=== PATIENT | male | born 1965 | race Caucasian/White ===

== ENCOUNTER → 2017-06-07 | Outpatient (CLI) | payer OTHER ==
[~2017-06-07] MED LIST: FLAX100053 PO; GLUC-135 PO; IBUP-56 PO; MELO-207 PO; MODA100T5 PO; TAMS0.4C25 PO
--- NOTE | 2017-06-07 09:40 | RADIOLOGY IMAGING REPORT ---
FACILITY: [facility] PATIENT NAME: Karthik Mcdermott : 1965 MR: [id number] V: [id number] EXAM DATE: ORDERING PHYSICIAN: MAURIZIO WILLIAM TECHNOLOGIST: Location: [facility] - [place] Patient: Karthik Mcdermott : 1965 Visit/Account:[id number] Date of Sevice: 06/07/2017 Technique: CERVICAL SPINE 2 OR 3 VIEW HISTORY: Cervical neck pain Comparison studies: None FINDINGS: There is no acute fracture. The vertebral body heights, alignment and intervertebral disc spaces are maintained. Soft tissues are unremarkable. IMPRESSION: 1. No acute osseous process. Report Dictated By: Otis Blair DO at 06/07/2017 9:23 AM Report E-Signed By: Otis Blair DO at 06/07/2017 9:24 AM WSN:[id number]
--- NOTE | 2017-06-07 09:42 | RADIOLOGY IMAGING REPORT ---
FACILITY: [facility] PATIENT NAME: Karthik Mcdermott : 1965 MR: [id number] V: [id number] EXAM DATE: ORDERING PHYSICIAN: MAURIZIO WILLIAM TECHNOLOGIST: Location: [facility] Patient: Karthik Mcdermott : 1965 Visit/Account:[id number] Date of Sevice: 06/07/2017 CLAVICLE RIGHT HISTORY: Fell Two-view examination right clavicle FINDINGS: Clavicles intact no fracture. The glenohumeral and AC joints are well-maintained. Adjacent ribs are n ormal. Right upper chest is clear. IMPRESSION: 1. Negative right clavicle Report Dictated By: rBayan Monge MD at 06/07/2017 9:21 AM Report E-Signed By: Brayan Monge MD at 06/07/2017 9:22 AM [id number]
== END ==
LOC: RAD 08:42
PROVIDERS: ATTEND Internal Medicine
DX: M54.2 Cervicalgia (principal); M89.8X1 Other specified disorders of bone, shoulder
CPT/HCPCS: 72040

== ENCOUNTER 2017-06-18 04:26 | Emergency (ER) | payer OTHER ==
[~2017-06-18] VITALS: Ht 188 cm; Wt 81.6 kg
[2017-06-18] MEDS ORDERED: NS(*) 0.9% 1000 ML BAG 1,000 ML IV ONE (04:44)
--- NOTE | 2017-06-18 04:44 | ER Report ---
History and Physical Time Seen By MD: 04:35 Hx. of Stated Complaint: patient having abdominal pain and vomiting since 0200. pain is mid belly and feels like cramping. HPI/ROS CHIEF COMPLAINT: Abdominal pain HISTORY OF PRESENT ILLNESS: 51-year-old male presents ambulatory to the ER complaining severe epigastric pain in a bandlike distribution across his upper abdomen. Patient's been having multiple episodes of vomiting. Describes severe 10 out of 10 crampy pain. He is pale and notes some sweats. Patient ate leftover [employer] food and had alcohol last evening for dinner. He is status post appendectomy. Patient denies diarrhea or constipation. Patient denies dysuria, frequency or hematuria. Patient denies fever or chills. REVIEW OF SYSTEMS: Respiratory: No cough, no dyspnea. Cardiovascular: No chest pain, no palpitations. Gastrointestinal: As above Musculoskeletal: No back pain. Allergies: Coded Allergies: gluten (Unverified Allergy, Unknown, 06/18/17) levofloxacin (Unverified Allergy, Unknown, 06/18/17) Home Meds Active Scripts Ondansetron (ZOFRAN ODT) 4 Mg Tab.rapdis, 4 MG PO every 6 hours Y for NAUSEA/ VOMITING, #12 TAB TAKE 1 TABLET BY MOUTH EVERY 12 HOURS Prov:KIP WOLF DO 06/18/17 Oxycodone Hcl/Acetaminophen (PERCOCET 5-325 MG TABLET) 1 Each Tablet, 1 EACH PO Q4-6H Y for PAIN, #12 Prov:KIP WOLF DO 06/18/17 Discontinued Reported Medications Ibuprofen (IBUPROFEN) 200 Mg Tablet, 2 TAB PO TID Y for pain, TAB 06/07/17 Gluc Waterman/Chondro Waterman A/Vit C/Mn (GLUCOSAMINE CHONDROITIN TAB) 1 Each Tablet, 1 EACH PO QDAY 06/08/16 Flaxseed Oil (FLAXSEED) 1,000 Mg Capsule, 1 CAP PO QDAY, CAPSULE 06/08/16 Reviewed Nurses Notes: Yes Old Medical Records Reviewed: Yes Hx Smoking: No Smoking Status: Never Smoker Hx Substance Use Disorder: No Hx Alcohol Use: Yes Constitutional Vital Sign - Last 24 Hours 06/18/17 06/18/17 06/18/17 06/18/17 04:30 04:41 04:57 05:00 Temp 98.1 Pulse 64 66 Resp 24 B/P (MAP) 113/58 (76) 111/70 (84) Pulse Ox 97 98 O2 Delivery Room Air 06/18/17 06/18/17 06/18/17 05:26 05:30 05:35 Pulse 57 60 B/P (MAP) 122/71 (88) Pulse Ox 98 97 Physical Exam Vital signs stable, afebrile, pulse ox normal General Appearance: The patient is alert, has no immediate need for airway protection and no current signs of toxicity. Moderate distress, slightly pale appearing, skin warm and dry HEENT: Pupils equal and round no injection. Oropharynx without redness or exudate, mucous. Membranes are moist Respiratory: Chest is non tender, lungs are clear to auscultation. Cardiac: regular rate and rhythm Gastrointestinal: Abdomen is soft, moderate tenderness across the upper abdomen. There is some guarding but no rebound, no masses, bowel sounds normal. Musculoskeletal: Neck: Neck is supple and non tender. No lymphadenopathy Extremities have full range of motion and are non tender. Skin: No rashes or lesions. DIFFERENTIAL DIAGNOSIS: After history and physical exam differential diagnosis was considered for abdominal pain including but not limited to appendicitis, cholecystitis, food poisoning, gastroenteritis, viral syndrome gastritis and urinary tract infection. Medical Decision Making Data Points Result Diagram: 06/18/17 0439 06/18/17 0439 Laboratory Hematology Test 06/18/17 04:39 Red Blood Count 6.04 M/uL (4.00-5.60) Mean Corpuscular Volume 87.3 fL (80.0-96.0) Mean Corpuscular Hemoglobin 29.3 pg (26.0-33.0) Mean Corpuscular Hemoglobin Concent 33.6 g/dL (32.0-36.0) Red Cell Distribution Width 15.0 % (11.5-14.5) Mean Platelet Volume 8.3 fL (7.2-11.1) Neutrophils (%) (Auto) 82.5 % (39.4-72.5) Lymphocytes (%) (Auto) 11.4 % (17.6-49.6) Monocytes (%) (Auto) 5.3 % (4.1-12.4) Eosinophils (%) (Auto) 0.3 % (0.4-6.7) Basophils (%) (Auto) 0.5 % (0.3-1.4) Nucleated RBC Relative Count (auto) 0.2 /100WBC Neutrophils # (Auto) 10.5 K/uL (2.0-7.4) Lymphocytes # (Auto) 1.5 K/uL (1.3-3.6) Monocytes # (Auto) 0.7 K/uL (0.3-1.0) Eosinophils # (Auto) 0.0 K/uL (0.0-0.5) Basophils # (Auto) 0.1 K/uL (0.0-0.1) Nucleated RBC Absolute Count (auto) 0.02 K/uL Sodium Level 138 mmol/L (137-145) Potassium Level 3.9 mmol/L (3.5-5.0) Chloride Level 98 mmol/L (98-107) Carbon Dioxide Level 28 mmol/L (22-30) Blood Urea Nitrogen 24 mg/dl (9-21) Creatinine 1.30 mg/dl (0.66-1.25) Glomerular Filtration Rate Calc 58.0 Random Glucose 120 mg/dl (75-110) Calcium Level 9.1 mg/dl (8.4-10.2) Total Bilirubin 0.6 mg/dl (0.2-1.3) Aspartate Amino Transf (AST/SGOT) 27 U/L (0-35) Alanine Aminotransferase (ALT/SGPT) 35 U/L (0-56) Alkaline Phosphatase 69 U/L (0-126) Total Protein 8.1 gm/dl (6.3-8.2) Albumin 4.6 g/dl (3.5-5.0) Amylase Level 104 U/L (0-110) Lipase 100 U/L (23-300) Chemistry Test 06/18/17 04:39 White Blood Count 12.7 k/uL (4.5-11.0) Red Blood Count 6.04 M/uL (4.00-5.60) Hemoglobin 17.7 g/dL (14.0-18.0) Hematocrit 52.7 % (42.0-52.0) Mean Corpuscular Volume 87.3 fL (80.0-96.0) Mean Corpuscular Hemoglobin 29.3 pg (26.0-33.0) Mean Corpuscular Hemoglobin Concent 33.6 g/dL (32.0-36.0) Red Cell Distribution Width 15.0 % (11.5-14.5) Platelet Count 271 K/uL (150-450) Mean Platelet Volume 8.3 fL (7.2-11.1) Neutrophils (%) (Auto) 82.5 % (39.4-72.5) Lymphocytes (%) (Auto) 11.4 % (17.6-49.6) Monocytes (%) (Auto) 5.3 % (4.1-12.4) Eosinophils (%) (Auto) 0.3 % (0.4-6.7) Basophils (%) (Auto) 0.5 % (0.3-1.4) Nucleated RBC Relative Count (auto) 0.2 /100WBC Neutrophils # (Auto) 10.5 K/uL (2.0-7.4) Lymphocytes # (Auto) 1.5 K/uL (1.3-3.6) Monocytes # (Auto) 0.7 K/uL (0.3-1.0) Eosinophils # (Auto) 0.0 K/uL (0.0-0.5) Basophils # (Auto) 0.1 K/uL (0.0-0.1) Nucleated RBC Absolute Count (auto) 0.02 K/uL Glomerular Filtration Rate Calc 58.0 Calcium Level 9.1 mg/dl (8.4-10.2) Total Bilirubin 0.6 mg/dl (0.2-1.3) Aspartate Amino Transf (AST/SGOT) 27 U/L (0-35) Alanine Aminotransferase (ALT/SGPT) 35 U/L (0-56) Alkaline Phosphatase 69 U/L (0-126) Total Protein 8.1 gm/dl (6.3-8.2) Albumin 4.6 g/dl (3.5-5.0) Amylase Level 104 U/L (0-110) Lipase 100 U/L (23-300) ED Course/Re-evaluation Clinical Indication for ER IV: Hydration, IV Access ED Course Patient was admitted to an examination room. H&P was done. The differential diagnoses was considered. On clinical examination. Patient with acute crampy abdominal pain. He ate [employer] food last night. Patient began with cramping abdominal pain. 3 hours ago. He's had persistent vomiting for the last 2 hours. Patient was treated with IV fluid hydration, Zofran, Toradol, fentanyl. He feels much better. Diagnostic laboratory studies show mildly elevated white blood cell count, otherwise unremarkable. Patient be discharged home on conservative treatment plan a clear liquid diet. He is given medicine for pain and vomiting control. Decision to Disposition Date: Jun 18, 2017 Decision to Disposition Time: 04:56 Depart Departure Latest Vital Signs Vital Signs Date Time Temp Pulse Resp B/P (MAP) Pulse Ox O2 Delivery O2 Flow Rate FiO2 06/18/17 05:35 60 97 06/18/17 05:30 122/71 (88) 06/18/17 04:30 98.1 24 Room Air Impression: Primary Impression: Vomiting Additional Impression: Epigastric pain Condition: Improved Disposition: HOME OR SELF-CARE Referrals: MAURIZIO WILLIAM MD (PCP) New Scripts Ondansetron (ZOFRAN ODT) 4 Mg Tab.rapdis 4 MG PO every 6 hours Y for NAUSEA/VOMITING, #12 TAB TAKE 1 TABLET BY MOUTH EVERY 12 HOURS Prov: KIP WOLF DO 06/18/17 Oxycodone Hcl/Acetaminophen (PERCOCET 5-325 MG TABLET) 1 Each Tablet 1 EACH PO Q4-6H Y for PAIN, #12 Prov: KIP WOLF DO 06/18/17 Patient Instructions: Abdominal Pain (ED), Acute Nausea and Vomiting (ED) Additional Instructions: Follow clear liquid diet for 24-48 hours, then advance to the brat diet for 24 hours Take ibuprofen 200 mg 3 tablets 3 times a day Follow-up with her primary care if unimproved in 3-5 days Problem Qualifiers Primary Impression: Vomiting Vomiting type: unspecified Vomiting Intractability: unspecified Nausea presence: unspecified Qualified Codes: R11.10 - Vomiting, unspecified KIP WOLF DO Jun 18, 2017 04:44
[2017-06-18] MEDS ORDERED: fentaNYL CITR 100 MCG/2 ML AMP IVP ONE (04:45)
[2017-06-18] MEDS ORDERED: ONDANSETRON 4 MG/2 ML VIAL IVP ONE (04:45)
[2017-06-18 04:55] LABS: PLATELET COUNT, AUTOMATED 271 K/uL (150-450)
[2017-06-18] MEDS ORDERED: KETOROLAC 30 MG/ML VIAL IVP ONE (05:25)
[2017-06-18 05:30] VITALS: BP 122/71
[2017-06-18] MEDS ORDERED: ONDANSETRON 4 MG ODT TH SL ONE (05:50)
[2017-06-18] MEDS ORDERED: oxyCODONE/ACETAMIN 5/325MG TH 2 TAB/BOTTLE PO ONE (05:50)
[2017-06-18] MEDS ORDERED: OXYC-865 PO (05:50)
[2017-06-18] MEDS ORDERED: ONDA4TAB PO (05:50)
== END 2017-06-18 06:00 | disposition home or self-care (01) ==
LOC: ER 04:46
DX: R10.13 Epigastric pain (principal); R11.10 Vomiting, unspecified
CPT/HCPCS: 82150; 83690; 85025; 96374; 96375; 99284; J1885; J2405; J3010; J7030; S0119; 82040; 82247; 82310; 82374; 82435; 82565; 82947; 84075; 84132; 84155; 84295; 84450; 84460; 84520

== ENCOUNTER → 2017-07-13 | Outpatient (CLI) | payer OTHER ==
[~2017-07-13] MED LIST changes: +ONDA4TAB PO; +OXYC-865 PO
--- NOTE | 2017-07-13 16:15 | RADIOLOGY IMAGING REPORT ---
FACILITY: [facility] PATIENT NAME: Karthik Mcdermott : 1965 MR: [id number] V: [id number] EXAM DATE: ORDERING PHYSICIAN: WILLEM WAY TECHNOLOGIST: Location: [facility] - [place] Patient: Karthik Mcdermott : 1965 Visit/Account:[id number] Date of Sevice: 07/13/2017 SHOULDER RIGHT W/O CONTRAST COMPARISON: None. HISTORY: Right sternum/clavicle pain, no injury. TECHNIQUE: Noncontrast axial CT of the right sternoclavicular joint with coronal and sagittal reform ats. One of the following dose optimization techniques was utilized in the performance of this exam: auto mated exposure control; adjustment of the mA and/or kV according to patient size; or use of iterative reconstruction technique. Specific details can be referenced in the facility's radiology CT exam op erational policy. CONTRAST: None. FINDINGS: BONES : No acute appearing fractures. No significant arthropathy or degenerative changes. No signi ficant bone lesions. The right sternoclavicular joint and visualized manubrium are unremarkable. Ther e is a small spur along the cranial margin of the clavicle at the sternoclavicular joint but no signi ficant degenerative changes at the joint itself. The right AC joint and glenohumeral joint are intact , and good alignment, and unremarkable without significant arthropathy or other abnormality. The righ t clavicle is intact and unremarkable. Visualized right ribs are intact. FLUID: No appreciable effusion or drainable fluid collection. SOFT TISSUES: Unremarkable. No focal muscle atrophy or appreciable muscle edema. OTHER: Negative. IMPRESSION: Unremarkable right sternoclavicular joint. No cause for pain identified.. Report Dictated By: Omid Franz at 07/13/2017 4:08 PM Report E-Signed By: Omid Franz at 07/13/2017 4:12 PM [id number]
== END ==
LOC: CT 02:50
PROVIDERS: ATTEND Orthopaedic Surgery
DX: M25.511 Pain in right shoulder (principal); R07.89 Other chest pain